=== PATIENT | female | born 1940 | race Caucasian/White ===

== ENCOUNTER 2016-10-30 18:32 | Emergency (ER) | payer MEDICARE, BC ==
--- NOTE | ~2016-10-30 | CT52 ---
[facility] A Service of [facility] RADIOLOGY TEXT RESULTS PATIENT: LIA SANCHEZ LOCATION: SED : 42 UNIT #: [id number] AGE: [address]: Sukh Rivero MD SEX: F ORDER DR: [id number] [place] [id number] E MR#: [id number] Acc #: [id number] NAME: LIA SANCHEZ : 1940 SEX: F STUDY DATE/TIME: 10/30/2016 18:37 UNIT: SED ROOM: STUDY DESCRIPTION: CT Cervical Spine Wo Cont Attending Physician: Sukh Rivero M.D. Ordering Physician: Physician Non-Staff Primary Care Physician: Graciela George M.D. MEDICAL IMAGING REPORT This report is preliminary unless electronic signature is present. EXAM CT cervical spine without contrast, 10/30/2016 at 18:37 HISTORY Fell 1 hour prior to arrival. Hit head. Neck stiffness bilaterally. COMPARISON Cervical spine plain films, 05/14/2015 PROCEDURE 2.0 mm noncontrast axial images through the cervical spine. Sagittal and coronal reformatted images were obtained. TECHNIQUE This CT exam was performed with one or more of the following radiation dose reduction techniques: automatic exposure control, adjustment of mA and/or kV according to patient size, and iterative reconstruction. FINDINGS Craniocervical junction is intact. There is approximately 2.0 mm anterolisthesis of C4 upon C5 which is nonspecific but favored to represent degenerative change related to advanced facet arthropathy. Disc space height is fairly well maintained at each cervical level. At C2-3, there is mild posterior disc bulge resulting in borderline canal stenosis. There is mild right greater left facet arthropathy but no significant neural foraminal stenosis is seen. At C3-4, there is moderate bilateral facet arthropathy, but no significant disc bulge is seen. There is mild left uncovertebral spurring. Moderate left, mild right neural foraminal narrowing thought to be present, with only borderline canal stenosis. [facility] A Service of [facility] RADIOLOGY TEXT RESULTS PATIENT: [facility]IA [facility]ANC[facility]Z [id number] UNIT #: [id number] AGE: [address]: Sukh Rivero MD SEX: F ORDER DR: At C4-5, there is severe right greater than left facet arthropathy. Suspected moderate to severe right greater than left neural foraminal narrowing. No significant canal stenosis. At C5-6, there is severe left, moderate right facet arthropathy with left greater than right uncovertebral spurring. Severe left, mild right neural foraminal narrowing with only borderline canal stenosis. At C6-7, there is severe right facet arthropathy, mild posterior disc osteophyte formation, left side uncovertebral spurring, mild left facet arthropathy. Borderline canal stenosis. Mild right neural foraminal narrowing. C7-T1, no significant disc bulge, canal or foraminal stenosis. Ground-glass airspace disease is demonstrated anteriorly within the right upper lobe. It is nonspecific but could represent an area of pulmonary contusion. The adjacent imaged right ribs appear intact. Mild carotid bulb calcifications are present. IMPRESSION 1. There is 2.0 mm anterolisthesis of C4 upon C5 which is nonspecific but is thought most likely to be degenerative and related to advanced facet arthropathy at that level. Otherwise, no acute cervical spine fracture or subluxation is appreciated. 2. Multilevel degenerative changes in the cervical spine as described in detail in the report. Most significant levels are thought to be related to neural foraminal narrowing on the left at C3-4, bilaterally at C4-5, on the left at C5-6. 3. Ground-glass airspace disease is demonstrated anteriorly within the right upper lobe. Finding is nonspecific but could be related to pulmonary contusion. The adjacent imaged right ribs appear intact. Dictated by... Sondra Pacheco M.D. THIS IS AN ELECTRONICALLY VERIFIED REPORT Sondra Pacheco M.D. at 10/31/2016 7:01 PM Karma TD: 10/31/2016 11:16 JOB #: [id number] MEDICAL IMAGING REPORT
--- NOTE | ~2016-10-30 | CT71 ---
[facility] A Service [facility] RADIOLOGY TEXT RESULTS PATIENT: LIA SANCHEZ LOCATION: SED : 42 UNIT #: [id number] AGE: [address]: Sukh Rievro MD SEX: F ORDER DR: [id number] [place] [id number] E MR#: [id number] [facility] #: [id number] NAME: LIA SANCHEZ : 1940 SEX: F STUDY DATE/TIME: 10/30/2016 18:24 UNIT: SED ROOM: STUDY DESCRIPTION: CT Head Wo Contrast Attending Physician: Sukh Rivero M.D. Ordering Physician: Physician Non-Staff Primary Care Physician: Graciela George M.D. MEDICAL IMAGING REPORT This report is preliminary unless electronic signature is present. EXAM CT head, 10/30/2016 HISTORY Fell. Head laceration. Fell and hit head on gravel. Knot and abrasion to forehead. Neck stiffness bilateral. No loss of consciousness. TECHNIQUE This CT exam was performed with one or more of the following radiation dose reduction techniques: automatic exposure control, adjustment of mA and/or kV according to patient size, and iterative reconstruction. FINDINGS CT head performed from skull base through vertex without intravenous contrast. No comparisons. Brainstem unremarkable. Cerebellum and cerebral hemispheres show normal avila matter-white matter differentiation. No hemorrhage. No evidence of acute cortical ischemia. Midline structures nondisplaced. Basal ganglia intact. Ventricles, cisterns, sulci show mild generalized enlargement consistent with mild generalized atrophy. Scattered cavernous carotid arterial calcifications. The visualized intraorbital soft tissues have an appearance suggesting mild bilateral proptosis. Correlate with exam. The visualized paranasal sinuses and mastoid air cells are clear. No fracture. Mild soft tissue swelling left paracentral forehead. No soft tissue defect, subcutaneous air or radiodense foreign body. IMPRESSION 1. No acute abnormality seen in the brain. If patient has ongoing neurologic symptoms, consider followup imaging. 2. Mild generalized atrophy. 3. Scattered cavernous carotid arterial calcifications. [facility] A Service [facility] RADIOLOGY TEXT RESULTS PATIENT: LIA SANCHEZ [id number] 44 UNIT #: [id number] AGE: [address]: Sukh Rivero MD SEX: F ORDER DR: 4. No fracture. Mild soft tissue swelling right paracentral forehead/supraorbital region likely reflecting patient's trauma. No soft tissue defect, subcutaneous air or radiodense foreign body seen. 5. Appearance of the intraorbital soft tissues raises possibility of bilateral proptosis. Correlate with exam. Dictated by... Joe Munoz M.D. THIS IS AN ELECTRONICALLY VERIFIED REPORT Joe Munoz M.D. at 11/01/2016 4:25 PM Fred TD: 10/31/2016 10:29 JOB #: [id number] MEDICAL IMAGING REPORT
[~2016-10-30 18:32] MED LIST: AZOR PO; BUSPIRONE PO; FOLIC PO; HYDROCHLOROTHIAZIDE PO; MELOXICAM PO; MONTELUKAST PO; NEURONTIN PO; OMEPRAZOLE PO; PRAVASTATIN PO; SERTRALINE PO; [UNRECOGNIZED DRUG - OTHER] PO
== END 2016-10-30 20:01 | disposition home or self-care (01) ==
LOC: SED 18:32
DX: S00.03XA Contusion of scalp, initial encounter (principal); I10 Essential (primary) hypertension; Z23 Encounter for immunization; W01.0XXA Fall on same level from slipping, tripping and stumbling without subsequent striking against object, initial encounter; Y92.9 Unspecified place or not applicable
CPT/HCPCS: 70450; 72125; 90471; 90715; 99284